=== PATIENT | male | born 1950 | race Caucasian/White ===

== ENCOUNTER 2016-09-12 20:46 | Inpatient (IN) | payer OTHER ==
[~2016-09-12] VITALS: Ht 172.7 cm; Wt 70.3 kg
[~2016-09-12 20:46] MED LIST: CEFAZOLIN 1,000 MG ONE; DEXAMETHASONE 4 MG/ML, 1ML ONE; ONDANSETRON 2MG/ML, 2ML ONE; PROPOFOL 10 MG/ML, 20ML ONE; SUCCINYLCHOLINE 20 MG/ML, 10ML ONE
[2016-09-12] MEDS ORDERED: BUPIVACAINE/PF 0.5% INFIL ONE (21:30)
[2016-09-12] MEDS ORDERED: MORPHINE SULFATE 4 MG/ML, 1ML IVPush PRN (21:30)
[2016-09-12] MEDS ORDERED: CEFAZOLIN PMX 1GM/50ML 50 ML IV ONE (21:30)
[2016-09-12] MEDS ORDERED: PLEASE ENTER ALLERGIES MC SCH ×2 (21:30)
[2016-09-12] MEDS ORDERED: SODIUM CHLORIDE 0.9% 1,000ML IVBOLUS ONE (21:30)
[2016-09-12] MEDS ORDERED: ONDANSETRON 2MG/ML, 2ML IVPush ONE (21:30)
[2016-09-12] MEDS ORDERED: SODIUM CHLORIDE FLUSH 10ML SYR IVF ONE (21:30)
[2016-09-12] MEDS ORDERED: ONDANSETRON 2MG/ML, 2ML ONE (21:50)
[2016-09-12] MEDS ORDERED: BUPIVACAINE 0.25% ONE ×2 (21:50→22:02)
[2016-09-12] MEDS ORDERED: MORPHINE SULFATE 4 MG/ML, 1ML ONE (21:50)
[2016-09-12] MEDS ORDERED: CEFAZOLIN PMX 1GM/50ML 50 ML ONE (21:55)
[2016-09-12 22:06] LABS: BLOOD UREA NITROGEN 14 mg/dL (7-18)
[2016-09-12] MEDS ORDERED: BUPIVACAINE/PF 0.5% ONE (22:07)
[2016-09-12 22:09] LABS: ASPARTATE AMINO TRANSFERASE 24 U/L (15-37)
[2016-09-12] MEDS ORDERED: ASPI1CPM7 PO (23:42)
[2016-09-12] MEDS ORDERED: LISI-167 PO (23:42)
[2016-09-12] MEDS ORDERED: AMLO10TA2 PO (23:42)
[2016-09-12] MEDS ORDERED: ATOR20TA PO (23:42)
[2016-09-12 23:50] VITALS: BP 149/62
[2016-09-13] MEDS ORDERED: SODIUM CHLORIDE 0.9% 1,000 ML IV ONE
[2016-09-13] MEDS ORDERED: SODIUM CHLORIDE FLUSH 10ML SYR IVF PRN
[2016-09-13] MEDS ORDERED: PROMETHAZINE 25 MG/ML, 1ML IM PRN
[2016-09-13] MEDS ORDERED: MORPHINE SULFATE 4 MG/ML, 1ML IVPush PRN
[2016-09-13] MEDS ORDERED: HYDROmorphone 1 MG/ML, 1ML ONE (04:26)
[2016-09-13] MEDS: HYDROmorphone 1 MG/ML, 1ML IV PRN ×2 (04:30→07:58)
[2016-09-13] MEDS ORDERED: D5%-0.45NACL+KCL 20MEQ 1,000 ML IV SCH ×2 (05:00→13:42)
[2016-09-13 07:29] VITALS: BP 131/82
[2016-09-13] MEDS ORDERED: LABETALOL 5MG/ML, 20ML IVPush PRN (08:00)
[2016-09-13] MEDS ORDERED: ONDANSETRON 2MG/ML, 2ML IVPush PRN ×3 (08:00→12:30)
[2016-09-13] MEDS ORDERED: ONDANSETRON ODT 4 MG PO PRN (08:00)
[2016-09-13] MEDS ORDERED: morphine SULFATE 10 MG/ML, 1ML IVPush PRN (08:00)
[2016-09-13] MEDS ORDERED: THIAMINE 200 MG in SODIUM CHLORIDE 0.9% 50 ML IV ONE (08:00)
[2016-09-13] MEDS ORDERED: ACETAMINOPHEN 325 MG TABLET PO PRN ×3 (08:00→14:30)
[2016-09-13 09:00] LABS: IS PT STATUS REG ER OR PRE ER? NO
[2016-09-13] MEDS: MULTIVITAMIN 1 TABLET PO SCH (09:27)
[2016-09-13] MEDS: AMLODIPINE 5 MG TABLET PO SCH (09:27)
[2016-09-13] MEDS: LISINOPRIL 10 MG TABLET PO SCH (09:27)
[2016-09-13] MEDS: OXYcodone/APAP 5/325MG TABLET PO PRN ×2 (09:27→15:46)
[2016-09-13] MEDS: SODIUM CHLORIDE 0.9% 1,000 ML IV SCH ×2 (09:27→17:58)
[2016-09-13] MEDS ORDERED: MIDAZOLAM 1 MG/ML, 2ML ONE (11:19)
[2016-09-13] MEDS ORDERED: FENTANYL PF 250 MCG/5ML ONE (11:19)
[2016-09-13] MEDS ORDERED: BUPIVACAINE/PF 0.5% ONE (11:31)
[2016-09-13] MEDS ORDERED: PROMETHAZINE 25 MG/ML, 1ML IV PRN (12:30)
[2016-09-13] MEDS ORDERED: MEPERIDINE/PF 25MG/0.5ML IVPush PRN (12:30)
[2016-09-13] MEDS ORDERED: LABETALOL 5MG/ML, 20ML IV PRN (12:30)
[2016-09-13] MEDS ORDERED: ALBUTEROL/IPRATROPIUM 2.5MG/0.5MG, 3 ML NPPB PRN (12:30)
[2016-09-13] MEDS ORDERED: HYDROmorphone 1 MG/ML, 1ML IV PRN ×2 (12:30→14:30)
[2016-09-13] MEDS ORDERED: hydrALAzine 20 MG/ML, 1ML IV PRN (12:30)
[2016-09-13] MEDS ORDERED: FENTANYL PF 100 MCG/2ML IV PRN (12:30)
[2016-09-13] MEDS ORDERED: MIDAZOLAM 1 MG/ML, 5ML IV PRN (12:30)
[2016-09-13] MEDS ORDERED: OXYcodone 5 MG/5 ML ORAL.SOL UDC PO PRN (12:30)
[2016-09-13 13:47] VITALS: BP 120/76
[2016-09-13 13:58] LABS: IS PT STATUS REG ER OR PRE ER? NO
[2016-09-13] MEDS ORDERED: BEER 12 OZ CAN PO PRN (14:00)
[2016-09-13] MEDS ORDERED: ONDANSETRON 2MG/ML, 2ML IV PRN (14:30)
[2016-09-13] MEDS ORDERED: OXYcodone/APAP 5/325MG TABLET PO PRN (14:30)
[2016-09-13] MEDS ORDERED: HYDROcodone/APAP 7.5-325MG/15ML UDC PO PRN (14:30)
[2016-09-13] MEDS ORDERED: CEFAZOLIN 1,000 MG ONE (15:13)
[2016-09-13] MEDS ORDERED: PROPOFOL 10 MG/ML, 20ML ONE (15:13)
[2016-09-13] MEDS ORDERED: ONDANSETRON 2MG/ML, 2ML ONE (15:13)
[2016-09-13] MEDS ORDERED: DEXAMETHASONE 4 MG/ML, 1ML ONE (15:13)
[2016-09-13] MEDS ORDERED: SUCCINYLCHOLINE 20 MG/ML, 10ML ONE (15:13)
[2016-09-13] MEDS: KETOROLAC 30 MG/1 ML IV SCH ×2 (15:46→22:38)
[2016-09-13] MEDS: CEFAZOLIN PMX 1GM/50ML 50 ML IVPB SCH (19:36)
[2016-09-13 19:57] VITALS: BP 119/70
[2016-09-13] MEDS: DOCUSATE 100 MG CAPSULE PO SCH (20:15)
[2016-09-13] MEDS: ATORVASTATIN 20 MG TABLET PO SCH (20:15)
[2016-09-13] MEDS: SODIUM CHLORIDE FLUSH 10ML SYR IVF SCH (20:16)
[2016-09-14] MEDS: SODIUM CHLORIDE 0.9% 1,000 ML IV SCH ×3 (00:26→21:38)
[2016-09-14] MEDS: CEFAZOLIN PMX 1GM/50ML 50 ML IVPB SCH (02:54)
[2016-09-14 02:58] VITALS: BP 114/66
[2016-09-14] MEDS: KETOROLAC 30 MG/1 ML IV SCH (05:51)
[2016-09-14] MEDS: ENOXAPARIN 40 MG/0.4 ML SQ SCH (05:51)
[2016-09-14 06:39] LABS: ASPARTATE AMINO TRANSFERASE 15 U/L (15-37); BLOOD UREA NITROGEN 19 mg/dL (7-18)
[2016-09-14 07:54] VITALS: BP_SYST 125; BP_SYST 156; BP_SYST 157; BP_DIAS 76; BP_DIAS 77; BP_DIAS 78
[2016-09-14] MEDS: SODIUM CHLORIDE FLUSH 10ML SYR IVF SCH ×2 (09:00→19:46)
[2016-09-14] MEDS: AMLODIPINE 5 MG TABLET PO SCH (09:51)
[2016-09-14] MEDS: LISINOPRIL 10 MG TABLET PO SCH (09:52)
[2016-09-14] MEDS: DOCUSATE 100 MG CAPSULE PO SCH ×2 (09:53→19:46)
[2016-09-14] MEDS: MULTIVITAMIN 1 TABLET PO SCH (09:54)
[2016-09-14] MEDS: FOLIC ACID 1 MG TABLET PO SCH (09:54)
[2016-09-14] MEDS: THIAMINE 100MG TABLET PO SCH (09:55)
[2016-09-14] MEDS: OXYcodone/APAP 5/325MG TABLET PO PRN ×3 (13:56→23:40)
[2016-09-14 14:30] VITALS: BP 125/73
[2016-09-14] MEDS: ATORVASTATIN 20 MG TABLET PO SCH (19:46)
[2016-09-14 20:00] VITALS: BP 127/72
[2016-09-15] VITALS (7 sets, daily range): BP systolic 99–144; BP diastolic 64–85
[2016-09-15] MEDS: OXYcodone/APAP 5/325MG TABLET PO PRN ×4 (04:16→19:58)
[2016-09-15] MEDS: ENOXAPARIN 40 MG/0.4 ML SQ SCH (04:16)
[2016-09-15] MEDS: SODIUM CHLORIDE 0.9% 1,000 ML IV SCH ×2 (05:15→15:35)
[2016-09-15] MEDS: MULTIVITAMIN 1 TABLET PO SCH (09:00)
[2016-09-15] MEDS: LISINOPRIL 10 MG TABLET PO SCH (09:00)
[2016-09-15] MEDS: DOCUSATE 100 MG CAPSULE PO SCH ×2 (09:00→19:58)
[2016-09-15] MEDS: SODIUM CHLORIDE FLUSH 10ML SYR IVF SCH ×2 (09:00→19:58)
[2016-09-15] MEDS: FOLIC ACID 1 MG TABLET PO SCH (09:00)
[2016-09-15] MEDS: THIAMINE 100MG TABLET PO SCH (09:00)
[2016-09-15] MEDS: AMLODIPINE 5 MG TABLET PO SCH (09:00)
[2016-09-15] MEDS: ATORVASTATIN 20 MG TABLET PO SCH (19:58)
[2016-09-16] MEDS: SODIUM CHLORIDE 0.9% 1,000 ML IV SCH (01:40)
[2016-09-16 02:00] VITALS: BP 163/79
[2016-09-16] MEDS: OXYcodone/APAP 5/325MG TABLET PO PRN ×3 (05:22→16:10)
[2016-09-16] MEDS: ENOXAPARIN 40 MG/0.4 ML SQ SCH (05:23)
[2016-09-16] MEDS ORDERED: LORazepam 2 MG/ML, 1ML IVPush ONE (06:30)
[2016-09-16 07:26] VITALS: BP 129/86
[2016-09-16] MEDS: LISINOPRIL 10 MG TABLET PO SCH (08:54)
[2016-09-16] MEDS: DOCUSATE 100 MG CAPSULE PO SCH (08:54)
[2016-09-16] MEDS: THIAMINE 100MG TABLET PO SCH (08:54)
[2016-09-16] MEDS: SODIUM CHLORIDE FLUSH 10ML SYR IVF SCH (08:55)
[2016-09-16] MEDS: MULTIVITAMIN 1 TABLET PO SCH (08:55)
[2016-09-16] MEDS: AMLODIPINE 5 MG TABLET PO SCH (08:55)
[2016-09-16] MEDS: FOLIC ACID 1 MG TABLET PO SCH (08:55)
[2016-09-16] MEDS ORDERED: ONDA4TAB13 PO (12:42)
[2016-09-16] MEDS ORDERED: ASPI-621 PO (12:42)
[2016-09-16] MEDS ORDERED: HYDR15SO3 PO (12:42)
[2016-09-16] MEDS ORDERED: THIA100T6 PO (12:42)
[2016-09-16] MEDS ORDERED: DOCU-30 PO (12:42)
[2016-09-16] MEDS ORDERED: ENOX40SY4 SQ (12:42)
[2016-09-16] MEDS ORDERED: ACET325T14 PO (12:42)
[2016-09-16] MEDS ORDERED: ASPI1CPM7 PO (12:57)
[2016-09-16 14:00] VITALS: BP 146/78
== END 2016-09-16 16:58 | DRG 481 ==
LOC: ED 22:27 → EDIP 22:41 → 4EST 23:51
PROVIDERS: ADMIT Internal Medicine; ATTEND Internal Medicine
PROC: 0QS736Z Reposition Left Upper Femur with Intramedullary Internal Fixation Device, Percutaneous Approach (ICD-10-PCS; principal; 2016-09-12)
DX: S72.142A Displaced intertrochanteric fracture of left femur, initial encounter for closed fracture (principal); J98.11 Atelectasis; E87.1 Hypo-osmolality and hyponatremia; I69.354 Hemiplegia and hemiparesis following cerebral infarction affecting left non-dominant side; I10 Essential (primary) hypertension; F12.90 Cannabis use, unspecified, uncomplicated; E78.5 Hyperlipidemia, unspecified; D72.829 Elevated white blood cell count, unspecified; I71.4 Abdominal aortic aneurysm, without rupture; M19.90 Unspecified osteoarthritis, unspecified site; S01.312A Laceration without foreign body of left ear, initial encounter; Z60.2 Problems related to living alone; I35.8 Other nonrheumatic aortic valve disorders; W19.XXXA Unspecified fall, initial encounter; G90.8 Other disorders of autonomic nervous system; Z82.3 Family history of stroke; Z87.891 Personal history of nicotine dependence; Y93.89 Activity, other specified; Y92.89 Other specified places as the place of occurrence of the external cause; Y99.8 Other external cause status; I70.0 Atherosclerosis of aorta
CPT/HCPCS: 13152; 36415; 70450; 71010; 72125; 76000; 80053; 80061; 80307; 81003; 83735; 84100; 84443; 84484; 85025; 85610; 85730; 93005; 93306; 93880; 96365; 96375; C1713; J0690; J1100; J1170; J1650; J1885; J2250; J2405; J2704; J3010; J3411; J3490; J0330; J3480; J7030